=== PATIENT | male | born 1945 | race Caucasian/White ===

== ENCOUNTER 2017-11-14 14:23 | Emergency (ER) | payer MEDICARE, OTHER ==
[~2017-11-14] VITALS: Ht 165.1 cm; Wt 95.3 kg
[~2017-11-14 14:23] MED LIST: ALTACE10 MG PO; AMARYL2 MG PO; ASPIRIN325 PO; CINNAMON500 MG PO; COREG25 MG PO; CYCLOBENZAPRINE5 MG PO; FISH OIL 1,001000 M2 PO; GLUCOPHAGE XR750 MG PO; HYDROCHLOROTH12.5 M1 PO; LEVAQUIN 500 M500 M2 PO; NICOTINE TRANSD21 M1 TOP; NORVASC5 MG PO; PREDNISONE10 MG PO; PROSCAR 5MG TABL5 MG PO; UNICOMPLEX M TA1 TA1 PO; ZOCOR20 MG PO
[2017-11-14 15:16] LABS: ABSOLUTE BASOPHILS 0.1 thou/uL (0.0-0.2); ABSOLUTE EOSINOPHILS 0.1 thou/uL (0.0-0.7); ABSOLUTE LYMPHOCYTES 2.2 thou/uL (0.8-5.3); ABSOLUTE NEUTROPHILS 10.5 thou/uL (1.6-8.1); BASOPHILS 0.6 %; EOSINOPHILS 0.8 %; HEMATOCRIT 38.8 % (42.0-52.0); HEMOGLOBIN 12.3 gm/dL (14.0-18.0); LYMPHOCYTES 15.7 %; MCH 29.2 pg (26.0-34.0); MCHC 31.7 g/dL (28.0-37.0); MCV 91.9 fL (80.0-100.0); MONOCYTES 6.9 %; MPV 7.7 fl. (7.2-11.1); NUCLEATED RBCS 0 /100WBC; PLATELET COUNT* 297 thou/uL (150-400); RBC 4.22 mil/uL (4.50-6.00); WBC 13.9 thou/uL (4.0-11.0)
[2017-11-14 15:19] LABS: INFLUENZA A ANTIGEN None Detected (None Detect); INFLUENZA B ANTIGEN None Detected (None Detect)
[2017-11-14 15:24] LABS: CALCIUM 8.7 mg/dL (8.5-10.1); CREATININE 0.7 mg/dL (0.6-1.3); POTASSIUM 3.4 mmol/L (3.5-5.1)
[2017-11-14 15:28] LABS: ALBUMIN 2.6 g/dL (3.4-5.0); TOTAL BILIRUBIN 0.4 mg/dL (<0.1-1.0); TOTAL PROTEIN 7.1 g/dL (6.4-8.2)
[2017-11-14] MEDS ORDERED: LASIX 20 MG TAB20 MG PO (16:10)
[2017-11-14] MEDS ORDERED: KLOR-CON 1010 MEQ PO (16:10)
[2017-11-14] MEDS ORDERED: ZPAK PO (16:10)
[2017-11-14] MEDS ORDERED: VENTOLIN HFA 1818 GM INH (16:10)
[2017-11-14 16:17] VITALS: BP 158/59
== END 2017-11-14 16:23 | disposition home or self-care (01) ==
LOC: M.ERS 14:23
PROVIDERS: Physician Assistant
DX: J84.89 Other specified interstitial pulmonary diseases (principal); E11.9 Type 2 diabetes mellitus without complications; F17.210 Nicotine dependence, cigarettes, uncomplicated

== ENCOUNTER → 2018-05-03 | Outpatient (CLI) | payer MEDICARE, OTHER ==
[~2018-05-03] MED LIST changes: +KLOR-CON 1010 MEQ PO; +LASIX 20 MG TAB20 MG PO; +VENTOLIN HFA 1818 GM INH; +ZPAK PO
[2018-05-03 08:59] LABS: CREATININE 0.8 mg/dL (0.6-1.3)
== END ==
LOC: M.LAB 08:30
PROVIDERS: Nurse Practitioner Family
DX: E11.9 Type 2 diabetes mellitus without complications (principal); R91.1 Solitary pulmonary nodule